=== PATIENT | male | born 1955 | race Caucasian/White ===

== ENCOUNTER 2020-01-15 09:49 | Emergency (ER) | payer OTHER, SELFPAY ==
[~2020-01-15] VITALS: Ht 172.7 cm; Wt 90.7 kg
[2020-01-15 09:49] VITALS: BP 131/94
--- NOTE | 2020-01-15 09:50 | NUR ---
64 Y/O M BIBA WITH A C/C OF SOB AND COUGH X 2 DAYS. PER [facility], PT WAS AT URGENT CARE AND HAD A NEAR SYNCOPE EPISODE AND LOST CONSCIOUSNESS FOR UNKNOWN AMOUNT OF TIME. [facility] STATED PULSE OX @ 70% ON ROOM AIR AT CLINIC. PT PRESENTS TO ER WITH O2 SATURATION OF 99% ON ROOM AIR, TACHYPNIC AT 27 RR, RESPIRATIONS EVEN AND UNLABORED, LUNG SOUNDS CLEAR BILATERALLY THOROUGHT. PT DENIES FEVER, BUT STATES HE HAS CHILLS. DENIES N/V/D. PT STATES HE WAS IN CONTACT WITH COVID (+) PERSON ON 01/10 AND HAS NOT BEEN TESTED YET. PT PLACED ON SIX SIGMA PROJECT MANAGER, PULSE OX. BED LOCKED IN LOWEST POSITION. SIDE RAILS X 1. MED HX: DENIES
--- NOTE | 2020-01-15 10:12 | NUR ---
EKG AT BEDSIDE
--- NOTE | 2020-01-15 10:12 | NUR ---
LAB AT BEDSIDE
--- NOTE | 2020-01-15 10:16 | NUR ---
NOVEL SWAB COLLECTED AND SENT TO LAB
[2020-01-15 10:20] LABS: BASOPHILS % (AUTO) 0.5 % (0.0-2.0); EOSINOPHILS % (AUTO) 1.3 % (0.0-4.0); HEMATOCRIT 47.2 % (36-52); LYMPHOCYTES # (AUTO) 0.9 K/uL (2.0-11.5); LYMPHOCYTES % (AUTO) 25.1 % (20.5-51.1); MEAN CORPUSCULAR HEMOGLOBIN 32 pg (27-31); MEAN CORPUSCULAR HGB CONC 34 g/dL (33-37); MONOCYTES # (AUTO) 0.4 K/uL (0.8-1.0); MONOCYTES % (AUTO) 12.1 % (1.7-9.3); NEUTROPHILS # (AUTO) 2.2 K/uL (1.8-7.7); PLATELET COUNT (AUTO) 157 K/uL (140-450); RED BLOOD CELL COUNT(AUTO) 4.96 MIL/uL (4.20-6.10); RED CELL DISTRIBUTION WIDTH 13.1 % (11.6-13.7); WHITE BLOOD COUNT (AUTO) 3.5 K/uL (4.8-10.8)
[2020-01-15 10:35] LABS: ALBUMIN 4.1 g/dL (3.4-5.0); ANION GAP 14.4 (8-16); CARBON DIOXIDE 25.6 mmol/L (21-32); CREATININE 1.3 mg/dL (0.6-1.3); TOTAL BILIRUBIN 0.3 mg/dL (0.0-1.0)
--- NOTE | 2020-01-15 10:35 | NUR ---
RAD AT BEDSIDE
[2020-01-15] MEDS ORDERED: KETOROLAC 30 MG/ML VIAL IVP ONE (11:05)
[2020-01-15] MEDS ORDERED: ONDANSETRON 4 MG/2 ML VIAL IVP ONE (11:05)
[2020-01-15 11:30] VITALS: BP 112/77
--- NOTE | 2020-01-15 11:30 | NUR ---
Patient discharged with v/s stable. Written and verbal after care instructions given and explained. Patient alert, oriented and verbalized understanding of instructions. Ambulatory with steady gait. All questions addressed prior to discharge. ID band removed. Patient advised to follow up with PMD. Rx of ZOFRAN. MOTRIN given. Patient educated on indication of medication including possible reaction and side effects. Opportunity to ask questions provided and answered.
--- NOTE | 2020-01-18 12:06 | NUR ---
RECEIVED CRITICAL LAB FROM [facility], LAB: [facility] +
== END 2020-01-15 11:55 | disposition home or self-care (01) ==
LOC: MED 09:49
DX: U07.1 COVID-19 (principal); R55 Syncope and collapse; R51.9 Headache, unspecified; Z88.0 Allergy status to penicillin; Z88.5 Allergy status to narcotic agent; Z88.6 Allergy status to analgesic agent; Z90.49 Acquired absence of other specified parts of digestive tract; Z98.890 Other specified postprocedural states
CPT/HCPCS: 71045; 80053; 84484; 85025; 93005; 96374; 96375; 99285; J1885; J2405; U0003